=== PATIENT | male | born 1955 | race Caucasian/White ===

== ENCOUNTER → 2023-04-20 | Outpatient (CLI) | payer MEDICARE, OTHER ==
--- NOTE | 2023-04-21 11:56 | CA ---
Transthoracic Echo Report Name: Gregory Baer Age: 68 Gender: M : 1955 Exam Date: 04/20/2023 18:01 Exam Location: [place] [facility] Ht (in): 69 Wt (lb): 270 Ordering Physician: Logan Wallis MD Attending/Referring Phys: Logan Wallis MD Pipe Inspector Marry Blue [facility] Procedure CPT: Indications: R00.1 bradycardia Cardiac Hx: Technical Quality: Fair Contrast 1: Total Dose (mL): Contrast 2: Total Dose (mL): MEASUREMENTS (Male / Female) Normal Values 2D ECHO LV Diastolic Diameter PLAX 4.0 cm 4.2 - 5.9 / 3.9 - 5.3 cm LV Systolic Diameter PLAX 2.7 cm IVS Diastolic Thickness 1.4 cm 0.6 - 1.0 / 0.6 - 0.9 cm LVPW Diastolic Thickness 1.3 cm 0.6 - 1.0 / 0.6 - 0.9 cm LV Relative Wall Thickness 0.7 Ascending Aorta Diameter 3.8 cm DOPPLER AV Peak Velocity 120.6 cm/s AV Peak Gradient 5.8 mmHg AV Mean Velocity 87.0 cm/s AV Mean Gradient 3.3 mmHg AV Velocity Time Integral 26.1 cm LVOT Peak Velocity 113.1 cm/s LVOT Peak Gradient 5.1 mmHg LVOT Velocity Time Integral 23.9 cm Mitral E Point Velocity 62.7 cm/s Mitral A Point Velocity 88.7 cm/s Mitral E to A Ratio 0.7 MV Deceleration Time 238.4 ms LV E' Lateral Velocity 8.9 cm/s Mitral E to LV E' Lateral Ratio 7.0 LV E' Septal Velocity 6.2 cm/s Mitral E to LV E' Septal Ratio 10.1 Right Atrial Pressure 3.0 mmHg FINDINGS Left Ventricle Moderately increased left ventricular wall thickness. Left ventricular cavity size normal. Normal left ventricular systolic function with no obvious regional wall motion abnormalities. Left ventricular ejection fraction is estimated at 55-60%. Right Ventricle Mild right ventricular dilatation. Unable to estimate the right ventricular systolic pressure. Right Atrium Upper normal right atrial size. Left Atrium Mild left atrial dilatation. Mitral Valve Structurally normal mitral valve. Trace mitral regurgitation. Aortic Valve Trileaflet aortic valve. No aortic valve stenosis or regurgitation. Tricuspid Valve Structurally normal tricuspid valve. No tricuspid regurgitation. Pulmonic Valve Pulmonic valve not well visualized. Pericardium No pericardial effusion. Aorta Aorta at upper limits of normal. CONCLUSIONS Left ventricular ejection fraction 55-60% Moderately increased left ventricular wall thickness Trace mitral regurgitation No tricuspid regurgitation Previewed by: Dr. Carlos Ram DO (Electronically Signed) Final Date: 21 April 2023 11:55
== END | disposition home or self-care (01) ==
LOC: RADECHMAIN 17:46
PROVIDERS: ATTEND Internal Medicine
DX: I34.0 Nonrheumatic mitral (valve) insufficiency (principal); I51.89 Other ill-defined heart diseases; R00.1 Bradycardia, unspecified
CPT/HCPCS: 93306

== ENCOUNTER → 2023-10-30 | Outpatient (CLI) | payer MEDICARE, OTHER ==
--- NOTE | 2023-10-30 10:36 | US ---
EXAMINATION TYPE: US Aorta Screening DATE OF EXAM: 10/30/2023 COMPARISON: NONE CLINICAL INDICATION: Male, 68 years old with history of Z13.6 AAA SCR R07.9 CHEST PAIN; TECHNIQUE: Multiple sonographic images of the abdominal aorta are obtained. FINDINGS: EXAM MEASUREMENTS: Abdominal Aorta: Proximal: 3.0 x 3.0cm Mid: 2.3 x 2.6cm Distal: 2.0 x 2.4cm Bifurcation: Right Iliac: not seen due to overlying bowel gas Left Iliac: not seen due to overlying bowel gas Proximal portion borderline aneurysmal IMPRESSION: Dilation of the proximal abdominal aorta with smooth tapering No evidence for aneurysm.
== END | disposition home or self-care (01) ==
LOC: RADUSWWP 07:44
PROVIDERS: ATTEND Internal Medicine
DX: Z13.6 Encounter for screening for cardiovascular disorders (principal); R07.9 Chest pain, unspecified
CPT/HCPCS: 76706

== ENCOUNTER → 2023-11-02 | Outpatient (CLI) | payer MEDICARE, OTHER ==
[~2023-11-02] MED LIST: REGADENOSON 0.4 MG/5 ML SYRINGE IV PRN
--- NOTE | 2023-11-02 14:09 | NM ---
EXAMINATION TYPE: NM stress lexiscan cardiolite DATE OF EXAM: 11/02/2023 COMPARISON: NONE CLINICAL INDICATION: Male, 68 years old with history of R07.9 CHEST PAIN Z13.6 ENCOUNTER FOR CARYN G FOR; TECHNIQUE: After the intravenous administration of 10.2 mCi Tc 99m Sestamibi - Cardiolite resting SP ECT images acquired 45 minutes post injection. The patient received 0.4mg Lexiscan, 26.1 mCi Tc 99m Sestamibi - Stress images obtained [address] injection FINDINGS: Review of stress and rest SPECT images demonstrates no distinct perfusion abnormality. Gated analysi s shows normal wall motion with an estimated left ventricular ejection fraction of 52 %. IMPRESSION: No scintigraphic evidence for reversible ischemia.
--- NOTE | 2023-11-02 19:25 | CA ---
Lexiscan Nuclear Stress Test Report Name: Gregory Baer Exam Date: 11/02/2023 09:30 Exam Location: [place] [facility] Ht (in): 70 Wt (lb): 263 BSA: 2.34 Ordering Phys: Logan Wallis DO Referring Phys: Logan Wallis DO Technologist: Reddy Shay Age: 68 Gender: M : 1955 Procedure CPT: Indications: R07.9 CHEST PAIN Z13.6 ENCOUNTER FOR SCREENING FOR ICD-10 Codes: Patient History: Chest pain and shortness of breath. Medications: Meds past 24 hrs: Pretest Chest Pain: STRESS TEST Lexiscan Protocol Exercise Duration (min:sec): 02:[address] Depressions (mm): Angina Score: Johnson Score: Resting HR (bpm): 56 Peak HR (bpm): 120 Resting BP (mmHg): 133 / 79 Peak BP (mmHg): 197 / 106 MPHR: 150 Target HR: 128 % MPHR: 80 METS: 1.0 Total Dose: Peak Dose: Atropine: Double Product: 10585 BP Response: Stress Termination: Infusion complete Stress Symptoms: Nausea Stress Summary: ECG ANALYSIS Resting ECG: Stress ECG: CONCLUSIONS Nondiagnostic stress test Dr. Kedar Potts MD (Electronically Signed) Final Date: 02 Nov 2023 19:25
== END | disposition home or self-care (01) ==
LOC: RADNMMAIN 07:55
PROVIDERS: ATTEND Internal Medicine
DX: Z13.6 Encounter for screening for cardiovascular disorders (principal); R07.9 Chest pain, unspecified; R06.02 Shortness of breath
CPT/HCPCS: 93017; 78452; A9500; J2785

== ENCOUNTER → 2024-01-17 | Outpatient (CLI) | payer MEDICARE, OTHER ==
[2024-01-17 10:37] LABS: Basophils # (A) 0.04 X 10*3/uL (0.00-0.10); Basophils % (A) 0.7 %; Eosinophils # (A) 0.13 X 10*3/uL (0.04-0.35); Eosinophils % (A) 2.2 %; HCT 44.4 % (39.6-50.0); Lymphocytes # (A) 1.55 X 10*3/uL (0.90-5.00); Lymphocytes % (A) 25.7 %; MCH 32.8 pg (27.0-32.0); MCHC 33.8 g/dL (32.0-37.0); MCV 96.9 FL (80.0-97.0); Mean Platelet Volume 10.4 FL (9.5-12.2); Monocytes # (A) 0.69 X 10*3/uL (0.20-1.00); Monocytes % (A) 11.4 %; NRBC Per 100 WBC 0 X 10*3/uL (0.00-0.01); Neutrophils # (A) 3.59 X 10*3/uL (1.80-7.70); Neutrophils % (A) 59.5 %; Platelet Count 253 X 10*3/uL (140-440); RBC 4.58 X 10*6/uL (4.40-5.60); RDW 12.4 % (11.5-14.5); WBC 6.03 X 10*3/uL (4.50-10.00)
[2024-01-17 11:01] LABS: ALT 21 U/L (10-49); AST 27 U/L (14-35); Albumin 4.4 g/dL (3.8-4.9); Albumin/Globulin Ratio 1.83 Ratio (1.60-3.17); Alkaline Phosphatase 84 U/L (41-126); BUN/Creat Ratio 14.67 Ratio (12.00-20.00); Blood Urea Nitrogen 13.2 mg/dL (9.0-27.0); Calcium 9.2 mg/dL (8.7-10.3); Carbon Dioxide 26.7 mmol/L (21.6-31.8); Chloride 101 mmol/L (96-109); Chol/HDL Ratio 4.23 Ratio; Globulin 2.4 g/dL (1.6-3.3); Glucose 105 mg/dL (70-110); LDL Cholesterol,Calculated 120.1 mg/dL (0.0-131.0); Magnesium 2.1 mg/dL (1.5-2.4); Potassium 4.7 mmol/L (3.5-5.5); Sodium 138 mmol/L (135-145); Total Bilirubin 0.4 mg/dL (0.3-1.2); Total Protein 6.8 g/dL (6.2-8.2); Uric Acid 5.9 mg/dL (3.7-8.7)
== END | disposition home or self-care (01) ==
LOC: LABWHC1 07:25
PROVIDERS: ATTEND Internal Medicine
DX: I10 Essential (primary) hypertension (principal); M79.675 Pain in left toe(s); Z86.19 Personal history of other infectious and parasitic diseases
CPT/HCPCS: 36415; 80053; 80061; 83735; 84443; 84550; 85025; 87522

== ENCOUNTER → 2024-10-20 | Outpatient (CLI) | payer MEDICARE, OTHER ==
[2024-10-20 18:28] LABS: Basophils # (A) 0.06 X 10*3/uL (0.00-0.10); Basophils % (A) 1.1 %; Eosinophils # (A) 0.11 X 10*3/uL (0.04-0.35); Eosinophils % (A) 1.9 %; HCT 48.7 % (39.6-50.0); HGB 15.8 g/dL (13.0-17.0); Lymphocytes # (A) 1.78 X 10*3/uL (0.90-5.00); Lymphocytes % (A) 31.3 %; MCH 31.7 pg (27.0-32.0); MCHC 32.4 g/dL (32.0-37.0); MCV 97.8 FL (80.0-97.0); Mean Platelet Volume 9.7 FL (9.5-12.2); Monocytes # (A) 0.67 X 10*3/uL (0.20-1.00); Monocytes % (A) 11.8 %; NRBC Per 100 WBC 0 X 10*3/uL (0.00-0.01); Neutrophils # (A) 3.06 X 10*3/uL (1.80-7.70); Neutrophils % (A) 53.7 %; Platelet Count 275 X 10*3/uL (140-440); RBC 4.98 X 10*6/uL (4.40-5.60); RDW 12.4 % (11.5-14.5); WBC 5.69 X 10*3/uL (4.50-10.00)
[2024-10-20 18:59] LABS: ALT 20 U/L (10-49); AST 20 U/L (14-35); Albumin 4.3 g/dL (3.8-4.9); Albumin/Globulin Ratio 1.79 Ratio (1.60-3.17); Alkaline Phosphatase 75 U/L (41-126); Blood Urea Nitrogen 16.1 mg/dL (9.0-27.0); Calcium 9.4 mg/dL (8.7-10.3); Carbon Dioxide 25.5 mmol/L (21.6-31.8); Chloride 101 mmol/L (96-109); Chol/HDL Ratio 4.36 Ratio; Globulin 2.4 g/dL (1.6-3.3); Glucose 94 mg/dL (70-110); LDL Cholesterol,Calculated 128.1 mg/dL (0.0-131.0); PSA Annual Screen 0.692 ng/mL (0.000-4.000); Potassium 4.7 mmol/L (3.5-5.5); Sodium 137 mmol/L (135-145); Total Bilirubin 0.4 mg/dL (0.3-1.2); Total Protein 6.7 g/dL (6.2-8.2); Uric Acid 6.3 mg/dL (3.7-8.7)
== END | disposition home or self-care (01) ==
LOC: LABWHC1 11:41
PROVIDERS: ATTEND Internal Medicine
DX: Z00.00 Encounter for general adult medical examination without abnormal findings (principal); Z12.5 Encounter for screening for malignant neoplasm of prostate; I10 Essential (primary) hypertension; M25.512 Pain in left shoulder
CPT/HCPCS: 80061; 80053; 84443; 83735; 84550; 85025; 36415; G0103

== ENCOUNTER → 2024-12-01 | Outpatient (CLI) | payer MEDICARE, OTHER ==
--- NOTE | 2024-12-01 10:07 | US ---
EXAMINATION TYPE: US duplex aorta DATE OF EXAM: 12/01/2024 COMPARISON: NONE CLINICAL INDICATION: Male, 69 years old with history of Z13.6 ENCOUNTER FOR SCREENING FOR CARDIOVASCU LAR D; TECHNIQUE: Multiple sonographic images of the abdominal aorta are obtained with grayscale and color D oppler imaging. FINDINGS: EXAM MEASUREMENTS: Abdominal Aorta: Proximal: 2.6 x 2.3cm Mid: 1.9 x 2.1cm Distal: 1.9 x 2.0cm Bifurcation: Right Iliac: 0.9 x 1.2cm Left Iliac: 1.0 x 1.2cm INDUSTRIAL/ORGANIZATIONAL PSYCHOLOGIST NOTES: *Limitations due to overlying bowel gas, portions of proximal aorta obscured. Ecta tic proximal aorta IMPRESSION: No evidence for aortic aneurysm. No further workup recommended for negative screening aortic aneurysm ultrasound per Society of Vascular Surgery Recommendations. [email or web address] [facility], , 12/01/2024 10:05 AM
== END | disposition home or self-care (01) ==
LOC: RADUSWWP 09:39
PROVIDERS: ATTEND Internal Medicine
DX: Z13.6 Encounter for screening for cardiovascular disorders (principal)
CPT/HCPCS: 93979

== ENCOUNTER 2024-12-22 16:19 | Emergency (ER) | payer MEDICARE, OTHER ==
--- NOTE | 2024-12-22 17:24 | ED ---
Extremity Problem HPI - General Chief complaint: Extremity Problem,Nontraumatic Stated complaint: Both Leg Pain Time Seen by Provider: 12/22/24 17:24 Source: patient, family, RN notes reviewed Mode of arrival: wheelchair Limitations: no limitations - History of Present Illness Initial comments: 69-year-old male presented the ER for evaluation of bilateral calf pain. Patient states upon arriving at work on morning he started to experience a sharp shooting stretching left calf pain. Patient states it was breath with ambulation and describes it as a pulling sharp pain. Patient states he was able to work throughout the day as he sits in a wheeling chair. He states upon walking out of work on he started to experience similar symptoms in his right calf. He denies any known injuries or traumas. Patient reports Sunday symptoms did improve after rest, ice and ibuprofen. He even states he was able to walk his dog a couple of blocks. Patient reports today upon waking up he had return of shooting bilateral calf pain. Patient was evaluated at urgent care and sent to emergency department to rule out DVT. Patient denies history of DVTs/PEs, no blood thinner use, no recent travel, former smoker. Patient states he has been "shuffling" to ambulate. Denies any chest pain, shortness of breath, dizziness, lightheadedness or palpitations. Nondiabetic - Related Data Home Medications Medication Instructions Recorded Confirmed Escitalopram Oxalate [Lexapro] 20 mg PO DAILY 08/11/22 08/11/22 Multivitamin/Iron/Folic Acid 1 tab PO DAILY 08/11/22 08/11/22 [Centrum Adults Tablet] Bryant-3/Dha/Epa/Fish Oil [Fish Oil 1 cap PO DAILY 08/11/22 08/11/22 1,000 mg Softgel] hydroCHLOROthiazide 12.5 mg PO DAILY 08/11/22 08/11/22 lisinopriL [Prinivil] 20 mg PO DAILY 08/11/22 08/11/22 Previous Rx's Medication Instructions Recorded Meclizine [Antivert] 25 mg PO TID PRN #12 tab 08/11/22 Metoclopramide HCl [Reglan] 10 mg PO Q6HR PRN #15 tablet 08/11/22 Allergies Allergy/AdvReac Type Severity Reaction Status Date / Time Penicillins Allergy Rash/Hives Verified 08/11/22 15:18 Review of Systems ROS Statement: Those systems with pertinent positive or pertinent negative responses have been documented in the HPI. ROS Other: All systems not noted in ROS Statement are negative. Past Medical History Past Medical History: Hyperlipidemia, Hypertension History of Any Multi-Drug Resistant Organisms: None Reported Past Surgical History: Hernia Repair Additional Past Surgical History / Comment(s): ortho clavical, vasectomy Past Psychological History: No Psychological Hx Reported Smoking Status: Former smoker Past Alcohol Use History: None Reported Past Drug Use History: Marijuana General Exam - General Exam Comments Initial Comments: Visual Physical Exam Vital signs reviewed General: Well-appearing, nontoxic, no acute distress. Head: Normocephalic, atraumatic Eyes: PERRLA, EOMI ENT: Airway patent Chest: Nonlabored breathing Skin: No visual rash, normal skin tone Neuro: Alert and oriented 3 Musculoskeletal: No gross abnormalities Limitations: no limitations General appearance: alert, in no apparent distress Respiratory exam: Present: normal lung sounds bilaterally. Absent: respiratory distress, wheezes, rales, rhonchi, stridor Cardiovascular Exam: Present: regular rate, normal rhythm, normal heart sounds. Absent: systolic murmur, diastolic murmur, rubs, gallop, clicks Extremities exam: Present: normal inspection, full ROM, normal capillary refill, calf tenderness (bilateral distal calf. no overlying skin changes), other (- hardin test bilaterally). Absent: tenderness, pedal edema, joint swelling Neurological exam: Present: alert, oriented X3, CN II-XII intact Skin exam: Present: warm, dry, intact, normal color. Absent: rash Course Vital Signs 12/22/24 12/22/24 12/22/24 16:23 18:25 19:53 Temperature 98.8 F 98.5 F Pulse Rate 87 90 91 Respiratory 16 18 18 Rate Blood Pressure 156/86 146/89 141/86 O2 Sat by Pulse 98 99 99 Oximetry Medical Decision Making - Medical Decision Making I performed the quick note portion of this chart. Electronically signed by Desiree Sosa PA-C Was pt. sent in by a medical professional or institution (JOHNATHAN Hogan, FIELD TRAFFIC INVESTIGATOR, urgent care, hospital, or long-term...) When possible be specific @ -Patient sent by urgent care to rule out DVT Did you speak to anyone other than the patient for history (EMS, parent, family, police, friend...)? What history was obtained from this source @ -No Did you review nursing and triage notes (agree or disagree)? Why? @ -I reviewed and agree with nursing and triage notes Were old charts reviewed (outside hosp., previous admission, EMS record, old EKG, old radiological studies, urgent care reports/EKG's, long-term records)? Report findings @ -No old charts were reviewed Differential Diagnosis (chest pain, altered mental status, abdominal pain women, abdominal pain men, vaginal bleeding, weakness, fever, dyspnea, syncope, heada meera, dizziness, GI bleed, back pain, seizure, CVA, palpatations, mental health, musculoskeletal)? @ -Differential Musculoskeletal: Muscular strain, contusion, ligament sprain, fracture, arthritis, septic arthritis, bursitis, cellulitis, muscle spasm, nerve compression, DVT, arterial occlusion, herpes zoster, electrolyte abnormality, tumor.... This is not meant to be in all inclusive list EKG interpreted by me (3pts min.). @ -None done X-rays interpreted by me (1pt min.). @ -None done CT interpreted by me (1pt min.). @ -None done U/S interpreted by me (1pt. min.). @ -Ultrasound venous Doppler negative for acute evidence of DVT What testing was considered but not performed or refused? (CT, X-rays, U/S, labs)? Why? @ -None What meds were considered but not given or refused? Why? @ -None Did you discuss the management of the patient with other professionals (professionals i.e. , PA, FIELD TRAFFIC INVESTIGATOR, lab, RT, psych nurse, social work nurse, [employer], teacher, coastal/harbor defense officer, director of casework services)? Give summary @ -No Was smoking cessation discussed for >3mins.? @ -No Was critical care preformed (if so, how long)? @ -No Were there social determinants of health that impacted care today? How? (Homelessness, low income, unemployed, alcoholism, drug addiction, transportation, low edu. Level, literacy, decrease access to med. care, senior care, rehab)? @ -No Was there de-escalation of care discussed even if they declined (Discuss DNR or withdrawal of care, Hospice)? DNR status @ -No What co-morbidities impacted this encounter? (DM, HTN, Smoking, COPD, CAD, Cancer, CVA, ARF, Chemo, Hep., AIDS, mental health diagnosis, sleep apnea, morbid obesity)? @ -None Was patient admitted / discharged? Hospital course, mention meds given and route, prescriptions, significant lab abnormalities, going to OR and other pertinent info. @ -Discharged. 69-year-old male presented to ER for evaluation of bilateral calf pain. Workup initiated in triage. Vital signs stable. Upon my evaluation, patient resting comfortably in recliner no signs of acute distress. Bilateral LEs are neurovascularly intact. There is mild tenderness to bilateral distal calf. No overlying skin changes. Patient was observed ambulating without difficulty. Ultrasound venous doppler of bilateral extremities obtained rule out DVT which is negative. Pain believed to be musculoskeletal in nature as there is no discomfort while at rest and is exacerbated with movement along with characteristics of pain described by patient. Conservative treatment options discussed. I also advised stretching. Return parameters discussed. Patient discharged in stable condition with follow-up to PCP. Patient verbally expressed understanding agree with care plan. Case discussed with ED attending, Dr. Gallegos. Undiagnosed new problem with uncertain prognosis? @ -No Drug Therapy requiring intensive monitoring for toxicity (Heparin, Nitro, Insulin, Cardizem)? @ -No Were any procedures done? @ -No Diagnosis/symptom? @ -Bilateral calf pain Acute, or Chronic, or Acute on Chronic? @ -Acute Uncomplicated (without systemic symptoms) or Complicated (systemic symptoms)? @ -Uncomplicated Side effects of treatment? @ -No Exacerbation, Progression, or Severe Exacerbation? @ -No Poses a threat to life or bodily function? How? (Chest pain, [place], [place], pneumonia, PE, COPD, DKA, ARF, appy, cholecystitis, CVA, Diverticulitis, Homicidal, Suicidal, threat to staff... and all critical care pts) @ -No - Radiology Data Radiology results: report reviewed, image reviewed Disposition Clinical Impression: Bilateral calf pain Disposition: HOME SELF-CARE Condition: Stable Additional Instructions: Follow-up with PCP. Drink plenty of water. Return to the ER for any new or worsening concerns. Is patient prescribed a controlled substance at d/c from ED?: No Referrals: Logan Wallis DO [Primary Care Provider] - 1-2 days Time of Disposition: 19:55
[2024-12-22 18:27] VITALS: RESP 18; TEMP 98.5
--- NOTE | 2024-12-22 18:54 | US ---
EXAMINATION TYPE: US venous doppler duplex LE DATE OF EXAM: 12/22/2024 6:45 PM COMPARISON: NONE CLINICAL INDICATION: Male, 69 years old with history of jony pain; calf pain. states hx dvt in right l eg years ago. not on thinners. no swelling , Pain TECHNIQUE: The lower extremity deep venous system is examined utilizing real time linear array sonog linda with graded compression, color doppler sonography, and spectral doppler. SIDE PERFORMED: Bilateral FINDINGS: VESSELS IMAGED: Common Femoral Vein Deep Femoral Vein Greater Saphenous Vein * Femoral Vein Popliteal Vein Small Saphenous Vein * Proximal Calf Veins (* superficial vessels) Right Leg: Negative for DVT, Color Doppler imaging shows patency of the vessels. Spectral waveforms are within normal limits. Left Leg: Negative for DVT, Color Doppler imaging shows patency of the vessels. Spectral waveforms a re within normal limits. IMPRESSION: No ultrasound evidence for deep venous thrombosis. [facility], , 12/22/2024 6:52 PM
[2024-12-22 19:55] VITALS: BP 141/86; PULSE 91
== END 2024-12-22 20:20 | disposition home or self-care (01) ==
LOC: EC 16:19
DX: M79.661 Pain in right lower leg (principal); M79.662 Pain in left lower leg; Z87.891 Personal history of nicotine dependence; Z88.0 Allergy status to penicillin
CPT/HCPCS: 93970; 99283; 99284